=== PATIENT | male | born 1980 | race African-American/Black ===

== ENCOUNTER 2018-08-04 19:43 | Emergency (ER) | payer SELFPAY ==
[~2018-08-04] VITALS: Ht 177.8 cm; Wt 89.8 kg
[2018-08-04 20:15] VITALS: Ht 177.8 cm; Wt 89.8 kg
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
[2018-08-04] MEDS ORDERED: CYCLOBENZAPRINE 10 MG TAB PO ONE (23:00)
[2018-08-04] MEDS ORDERED: IBUPROFEN 800 MG TAB PO ONE (23:00)
[2018-08-04] MEDS ORDERED: IBUP800T48 PO (23:09)
[2018-08-04] MEDS ORDERED: CYCL10TA7 PO (23:10)
[2018-08-05 00:38] VITALS: BP 147/91; PULSE 52; RESP 18
== END 2018-08-05 00:41 | disposition home or self-care (01) ==
LOC: FTE 19:43
DX: S20.219A Contusion of unspecified front wall of thorax, initial encounter (principal); M62.838 Other muscle spasm; V43.62XA Car passenger injured in collision with other type car in traffic accident, initial encounter
CPT/HCPCS: 71046; 72100; 73562